=== PATIENT | male | born 1935 | race Caucasian/White ===

== ENCOUNTER 2017-12-23 19:00 | Inpatient (IN) | payer MEDICARE ==
[~2017-12-23] VITALS: Ht 172.7 cm; Wt 86.0 kg
[~2017-12-23 19:00] MED LIST: AMIO200T57 PO; ATOR80TA PO; DABI150C PO; ESCI10TA54 PO; FENO200C PO; FURO40TA4 PO; HCTZ25T PO; INSU100V36 SQ; LANTUS SQ; LEVO50TA8 PO; LIRA0.6P2 SUBCUT; OXYB5TAB11 PO; PRAM0.5T3 PO; TAMS0.4C32 PO
[2017-12-23] MEDS ORDERED: acetaminophen 325mg tablet PO STA (19:02)
[2017-12-23] MEDS ORDERED: normal saline 1000ML IV soln IV ONE (19:05)
[2017-12-23 19:26] LABS: BASOPHILS % (AUTO) 0.3 % (0-1); EOSINOPHILS % (AUTO) 0.3 % (0-6); HEMATOCRIT 24.1 % (42.0-52.0); LYMPHOCYTES # (AUTO) 0.7 X10'3 (1.1-4.8); MEAN CORPUSCULAR HEMOGLOBIN 28.6 PG (27.0-31.0); MEAN CORPUSCULAR HGB CONC 33.1 % (33.0-36.5); MEAN CORPUSCULAR VOLUME 86.4 FL (78-98); MONOCYTES # (AUTO) 1.1 X10'3 (0-0.9); MONOCYTES % (AUTO) 7.2 % (2-12); NEUTROPHILS # (AUTO) 12.8 X10'3 (1.8-7.7); NEUTROPHILS % (AUTO) 87.2 % (42-75); PLATELET COUNT 323 X10'3 (140-440); RED BLOOD COUNT 2.79 X10'6 (4.70-6.10); RED CELL DISTRIBUTION WIDTH 19.7 % (11.5-14.5); WHITE BLOOD COUNT 14.7 X10'3 (4.5-11.0)
[2017-12-23 19:38] LABS: INR 1.8 INR; PARTIAL THROMBOPLASTIN TIME 36 SECONDS (22-32); PROTHROMBIN TIME 18.1 SECONDS (9.0-12.0)
[2017-12-23 19:44] LABS: ALANINE AMINOTRANSFERASE 21 U/L (12-78); ALBUMIN 1.8 G/DL (3.4-5.0); ALBUMIN/GLOBULIN RATIO 0.4 (1.1-1.5); ALKALINE PHOSPHATASE 115 IU/L (46-116); ANION GAP 8 (8-16); ASPARTATE AMINO TRANSFERASE 47 U/L (10-37); BILIRUBIN,TOTAL 0.8 MG/DL (0.1-1.0); BLOOD UREA NITROGEN 28 MG/DL (7-18); BUN/CREATININE RATIO 21.2 (5.4-32.0); CALCIUM 8.1 MG/DL (8.5-10.1); CHLORIDE 103 MMOL/L (99-107); CREATININE 1.32 MG/DL (0.60-1.10); GLUCOSE 152 MG/DL (70-104); MAGNESIUM 1.9 MG/DL (1.5-2.4); POTASSIUM 4.7 MMOL/L (3.5-5.1); SODIUM 140 MMOL/L (135-145); TOTAL CARBON DIOXIDE 28.6 MMOL/L (24-32); TOTAL PROTEIN 6.7 G/DL (6.4-8.2); eGFR 52 ML/MIN
[2017-12-23 19:56] LABS: CLARITY,URINE CLOUDY (Clear); COLOR,URINE YELLOW (Yellow); GLUCOSE, URINE NEGATIVE (Neg); KETONES,URINE NEGATIVE (Neg); LEUKOCYTE ESTERASE ,URINE LARGE (Neg); NITRITES, URINE NEGATIVE (Neg); OCCULT BLOOD,URINE LARGE (Neg); PH,URINE 6.5 (4.8-8.0); PROTEIN,URINE 100 mg/dl (Neg)
[2017-12-23 20:02] LABS: UA COLLECTION TYPE FOLEY CATH
[2017-12-23 20:03] LABS: BACTERIA,URINE 3+ /HPF (Neg); SQUAMOUS EPITHELIAL CELL,UR FEW /LPF (FEW); WBC CLUMPS,URINE FEW /HPF (NEGATIVE); WBC,URINE TNTC /HPF (0-4)
[2017-12-23] MEDS ORDERED: iohexol 300mg/ml 100ml inj. ONE (20:11)
[2017-12-23 20:50] LABS: ANISOCYTOSIS 2+; PLATELET ESTIMATE NORMAL
[2017-12-23 20:51] LABS: ACANTHOCYTES FEW; ELLIPTOCYTES FEW; POLYCHROMASIA FEW
[2017-12-23] MEDS ORDERED: piperacillin/tazo 3.375gm/50ml 50 ML IV ONE (21:05)
[2017-12-23] MEDS ORDERED: OMEP-50 (21:28)
[2017-12-23] MEDS ORDERED: ESCI5TAB PO (21:28)
[2017-12-23] MEDS ORDERED: LIDOcaine 1.5% w/epinephrine 1:200,000 5ml ampul IJ ONE (21:30)
[2017-12-23] MEDS ORDERED: magnesium hydroxide 30ml (MOM) UD suspension PO PRN (22:00)
[2017-12-23] MEDS ORDERED: mag hydrox/Alum hydrox/simeth 30ml oral suspension PO PRN (22:00)
[2017-12-23] MEDS ORDERED: acetaminophen 325mg tablet PO PRN (22:00)
[2017-12-23] MEDS ORDERED: insulin Lispro (HumaLOG) vial - multi-dose SQ SCH (22:10)
[2017-12-23] MEDS ORDERED: glucagon, human recombinant 1mg kit SUBCUT PRN (22:10)
[2017-12-23] MEDS ORDERED: dextrose 50%-water 50ml dispensing syringe IV PRN (22:10)
[2017-12-23] MEDS ORDERED: MESSAGE TO PHARMACY PO ONE (22:10)
[2017-12-23] MEDS ORDERED: dextrose ORAL solution 15 GM/59 ML bottle PO PRN ×2 (22:10)
[2017-12-23 22:20] LABS: ABG HCO3 32.4 mmol/L (22.0-26.0); ABG PCO2 (T) 42.4 mmHg (35.0-48.0); ABG PH (T) 7.501 (7.350-7.450); ABG PO2 (T) 157.3 mmHg (83-108)
[2017-12-23 22:23] LABS: PLEURAL FLUID PH 7.501 (7.63-7.65)
[2017-12-23 22:24] LABS: BFSOURCE PLEURAL FLD
[2017-12-23] MEDS: normal saline 1000ml 1,000 ML IV SCH (22:37)
[2017-12-23] MEDS: CefTRIAXone/D5W-Rocephin 1gm 50 ML IV SCH (22:37)
[2017-12-23 22:41] LABS: ALBUMIN,BODY FLUID 1.2 G/DL; LDH,BODY FLUID 103 U/L; TOTAL PROTEIN,BODY FLUID 3.1 G/DL
[2017-12-23 23:12] LABS: HEMOGLOBIN A1C 6.6 % (4.5-6.2)
[2017-12-23 23:19] LABS: BF MESOTHELIAL CELLS FEW; BF RBC COUNT 693 /CU MM; BF WBC COUNT 32 /CU MM (0-1000); BFAPPEAR HAZY; BFCOLOR YELLOW; BFVOLUME 22 ML; LYMPHOCYTES,BODY FLUID 45 %; MONOCYTES,BODY FLUID 39 %; NEUTROPHILS,BODY FLUID 16 %
[2017-12-23 23:35] VITALS: BP 101/50
[2017-12-24 05:00] VITALS: BP 130/55
[2017-12-24 07:04] LABS: BASOPHILS % (AUTO) 0.3 % (0-1); EOSINOPHILS # (AUTO) 0.2 X10'3 (0-0.9); EOSINOPHILS % (AUTO) 1.3 % (0-6); HEMATOCRIT 26.4 % (42.0-52.0); HEMOGLOBIN 8.5 g/dl (14.0-17.9); LYMPHOCYTES # (AUTO) 1.2 X10'3 (1.1-4.8); LYMPHOCYTES % (AUTO) 9.2 % (21-51); MEAN CORPUSCULAR HEMOGLOBIN 28.3 PG (27.0-31.0); MEAN CORPUSCULAR HGB CONC 32.2 % (33.0-36.5); MEAN CORPUSCULAR VOLUME 87.8 FL (78-98); MEAN PLATELET VOLUME 8.4 FL (7.4-10.4); MONOCYTES # (AUTO) 0.9 X10'3 (0-0.9); MONOCYTES % (AUTO) 6.9 % (2-12); NEUTROPHILS # (AUTO) 10.7 X10'3 (1.8-7.7); NEUTROPHILS % (AUTO) 82.3 % (42-75); PLATELET COUNT 291 X10'3 (140-440)
[2017-12-24 07:14] LABS: ALANINE AMINOTRANSFERASE 26 U/L (12-78); ALBUMIN 1.8 G/DL (3.4-5.0); ALBUMIN/GLOBULIN RATIO 0.4 (1.1-1.5); ALKALINE PHOSPHATASE 117 IU/L (46-116); ANION GAP 5 (8-16); ASPARTATE AMINO TRANSFERASE 48 U/L (10-37); BILIRUBIN,TOTAL 0.7 MG/DL (0.1-1.0); BLOOD UREA NITROGEN 30 MG/DL (7-18); BUN/CREATININE RATIO 19.6 (5.4-32.0); CALCIUM 8.1 MG/DL (8.5-10.1); CHLORIDE 103 MMOL/L (99-107); CREATININE 1.53 MG/DL (0.60-1.10); GLUCOSE 142 MG/DL (70-104); POTASSIUM 4.4 MMOL/L (3.5-5.1); SODIUM 138 MMOL/L (135-145); TOTAL CARBON DIOXIDE 29.9 MMOL/L (24-32); TOTAL PROTEIN 6.7 G/DL (6.4-8.2); eGFR 44 ML/MIN
[2017-12-24 08:01] LABS: ANISOCYTOSIS 2+; PLATELET ESTIMATE NORMAL; TOTAL CELLS COUNTED 100
[2017-12-24 09:42] VITALS: BP 138/61
[2017-12-24] MEDS: amiodarone 200mg tablet PO SCH (09:44)
[2017-12-24] MEDS: pantoprazole 40mg Tablet.DR PO SCH (09:44)
[2017-12-24] MEDS: levoTHYROXINE 25mcg tablet PO SCH (09:44)
[2017-12-24] MEDS: fenofibrate 145mg tablet PO SCH (09:44)
[2017-12-24] MEDS: citalopram 20mg tablet PO SCH (09:44)
[2017-12-24] MEDS: heparin, porcine 5000 units/ml vial SQ SCH ×2 (09:45→21:03)
[2017-12-24 10:00] VITALS: BP 119/71
[2017-12-24] MEDS: normal saline 1000ml 1,000 ML IV SCH ×2 (12:17→23:37)
[2017-12-24] MEDS: levoFLOXACIN 750MG TABLET PO SCH (15:32)
[2017-12-24] MEDS ORDERED: NYST30CR2 TP (16:01)
[2017-12-24] MEDS ORDERED: HYDR-565 PO (16:02)
[2017-12-24] MEDS ORDERED: MULT-1085 PO (16:03)
[2017-12-24] MEDS ORDERED: POTA10TA19 PO (16:04)
[2017-12-24 18:30] VITALS: BP 93/57
[2017-12-24] MEDS: insulin glargine (Lantus) pen - multi-dose SQ SCH (21:00)
[2017-12-24] MEDS: atorvastatin 20mg tablet PO SCH (21:03)
[2017-12-24] MEDS: pramipexole 1mg tablet PO SCH (21:03)
[2017-12-24 22:00] VITALS: BP 99/42
[2017-12-24] MEDS: CefTRIAXone/D5W-Rocephin 1gm 50 ML IV SCH (22:04)
[2017-12-25 05:58] LABS: BASOPHILS % (AUTO) 0.4 % (0-1); EOSINOPHILS % (AUTO) 0.3 % (0-6); HEMATOCRIT 23.2 % (42.0-52.0); HEMOGLOBIN 7.8 g/dl (14.0-17.9); LYMPHOCYTES # (AUTO) 1.1 X10'3 (1.1-4.8); LYMPHOCYTES % (AUTO) 9.8 % (21-51); MEAN CORPUSCULAR HEMOGLOBIN 29.1 PG (27.0-31.0); MEAN CORPUSCULAR HGB CONC 33.5 % (33.0-36.5); MEAN CORPUSCULAR VOLUME 86.6 FL (78-98); MEAN PLATELET VOLUME 8.3 FL (7.4-10.4); MONOCYTES # (AUTO) 0.8 X10'3 (0-0.9); MONOCYTES % (AUTO) 7.1 % (2-12); NEUTROPHILS # (AUTO) 9.6 X10'3 (1.8-7.7); NEUTROPHILS % (AUTO) 82.4 % (42-75); PLATELET COUNT 273 X10'3 (140-440); RED BLOOD COUNT 2.68 X10'6 (4.70-6.10); RED CELL DISTRIBUTION WIDTH 19.9 % (11.5-14.5); WHITE BLOOD COUNT 11.6 X10'3 (4.5-11.0)
[2017-12-25 06:00] VITALS: BP 129/69
[2017-12-25 06:20] LABS: ALANINE AMINOTRANSFERASE 22 U/L (12-78); ALBUMIN 1.6 G/DL (3.4-5.0); ALBUMIN/GLOBULIN RATIO 0.3 (1.1-1.5); ALKALINE PHOSPHATASE 98 IU/L (46-116); ANION GAP 6 (8-16); ASPARTATE AMINO TRANSFERASE 36 U/L (10-37); BILIRUBIN,TOTAL 0.6 MG/DL (0.1-1.0); BLOOD UREA NITROGEN 33 MG/DL (7-18); BUN/CREATININE RATIO 21.6 (5.4-32.0); CALCIUM 7.6 MG/DL (8.5-10.1); CHLORIDE 103 MMOL/L (99-107); CREATININE 1.53 MG/DL (0.60-1.10); GLUCOSE 124 MG/DL (70-104); POTASSIUM 4.1 MMOL/L (3.5-5.1); SODIUM 136 MMOL/L (135-145); TOTAL CARBON DIOXIDE 27.1 MMOL/L (24-32); TOTAL PROTEIN 6.3 G/DL (6.4-8.2); eGFR 44 ML/MIN
[2017-12-25 07:37] LABS: ANISOCYTOSIS 2+; PLATELET ESTIMATE NORMAL
[2017-12-25] MEDS: pantoprazole 40mg Tablet.DR PO SCH (07:45)
[2017-12-25] MEDS: levoTHYROXINE 25mcg tablet PO SCH (07:45)
[2017-12-25] MEDS: citalopram 20mg tablet PO SCH (07:45)
[2017-12-25] MEDS: amiodarone 200mg tablet PO SCH (07:46)
[2017-12-25] MEDS: fenofibrate 145mg tablet PO SCH (07:46)
[2017-12-25] MEDS: heparin, porcine 5000 units/ml vial SQ SCH ×2 (07:50→20:58)
[2017-12-25 10:00] VITALS: BP 143/77
[2017-12-25] MEDS: normal saline 1000ml 1,000 ML IV SCH (12:50)
[2017-12-25] MEDS: ondansetron/PF 4mg/2ml inj IV PRN ×2 (16:11→23:40)
[2017-12-25 18:00] VITALS: BP_SYST 141; BP_SYST 99; BP_DIAS 42; BP_DIAS 69
[2017-12-25] MEDS ORDERED: proCHLORperazine 10 MG/2 ml inj IV PRN (20:25)
[2017-12-25] MEDS: pramipexole 1mg tablet PO SCH (20:58)
[2017-12-25] MEDS: atorvastatin 20mg tablet PO SCH (20:58)
[2017-12-25] MEDS: lactobacillus rhamnosus 10,000 MMU CELLS/CAPSULE PO SCH (20:58)
[2017-12-25] MEDS: insulin glargine (Lantus) pen - multi-dose SQ SCH (21:00)
[2017-12-25 22:00] VITALS: BP 148/85
[2017-12-25] MEDS: CefTRIAXone/D5W-Rocephin 1gm 50 ML IV SCH (22:43)
[2017-12-26] MEDS: normal saline 1000ml 1,000 ML IV SCH ×3 (03:24→15:32)
[2017-12-26 05:24] LABS: BASOPHILS % (AUTO) 0.1 % (0-1); EOSINOPHILS # (AUTO) 0.1 X10'3 (0-0.9); EOSINOPHILS % (AUTO) 0.8 % (0-6); HEMATOCRIT 25.5 % (42.0-52.0); HEMOGLOBIN 8.3 g/dl (14.0-17.9); LYMPHOCYTES # (AUTO) 0.9 X10'3 (1.1-4.8); LYMPHOCYTES % (AUTO) 8.1 % (21-51); MEAN CORPUSCULAR HEMOGLOBIN 28.5 PG (27.0-31.0); MEAN CORPUSCULAR HGB CONC 32.6 % (33.0-36.5); MEAN CORPUSCULAR VOLUME 87.5 FL (78-98); MONOCYTES # (AUTO) 0.6 X10'3 (0-0.9); MONOCYTES % (AUTO) 5.5 % (2-12); NEUTROPHILS % (AUTO) 85.5 % (42-75); PLATELET COUNT 320 X10'3 (140-440); RED BLOOD COUNT 2.92 X10'6 (4.70-6.10); RED CELL DISTRIBUTION WIDTH 19.7 % (11.5-14.5); WHITE BLOOD COUNT 10.6 X10'3 (4.5-11.0)
[2017-12-26 05:51] LABS: ALANINE AMINOTRANSFERASE 21 U/L (12-78); ALBUMIN 1.8 G/DL (3.4-5.0); ALBUMIN/GLOBULIN RATIO 0.4 (1.1-1.5); ALKALINE PHOSPHATASE 107 IU/L (46-116); ANION GAP 11 (8-16); ASPARTATE AMINO TRANSFERASE 44 U/L (10-37); BILIRUBIN,TOTAL 0.8 MG/DL (0.1-1.0); BLOOD UREA NITROGEN 37 MG/DL (7-18); BUN/CREATININE RATIO 22.2 (5.4-32.0); CALCIUM 8.3 MG/DL (8.5-10.1); CHLORIDE 102 MMOL/L (99-107); CREATININE 1.67 MG/DL (0.60-1.10); GLUCOSE 146 MG/DL (70-104); POTASSIUM 4.1 MMOL/L (3.5-5.1); SODIUM 138 MMOL/L (135-145); TOTAL CARBON DIOXIDE 25.3 MMOL/L (24-32); TOTAL PROTEIN 6.8 G/DL (6.4-8.2); eGFR 39 ML/MIN
[2017-12-26 06:00] VITALS: BP 138/69
[2017-12-26 06:45] LABS: ANISOCYTOSIS 2+; PLATELET ESTIMATE NORMAL
[2017-12-26 06:46] LABS: SCHISTOCYTES FEW
[2017-12-26 06:47] LABS: ACANTHOCYTES 1+
[2017-12-26] MEDS: levoTHYROXINE 25mcg tablet PO SCH (07:48)
[2017-12-26] MEDS: pantoprazole 40mg Tablet.DR PO SCH (07:48)
[2017-12-26] MEDS: amiodarone 200mg tablet PO SCH (07:48)
[2017-12-26] MEDS: fenofibrate 145mg tablet PO SCH (07:48)
[2017-12-26] MEDS: lactobacillus rhamnosus 10,000 MMU CELLS/CAPSULE PO SCH ×2 (07:48→19:53)
[2017-12-26] MEDS: levoFLOXACIN 750MG TABLET PO SCH (07:48)
[2017-12-26] MEDS: citalopram 20mg tablet PO SCH (07:48)
[2017-12-26] MEDS: heparin, porcine 5000 units/ml vial SQ SCH ×2 (07:49→19:54)
[2017-12-26 10:00] VITALS: BP 139/71
[2017-12-26 18:00] VITALS: BP 137/77
[2017-12-26] MEDS: atorvastatin 20mg tablet PO SCH (19:53)
[2017-12-26] MEDS: pramipexole 1mg tablet PO SCH (19:53)
[2017-12-26] MEDS: insulin glargine (Lantus) pen - multi-dose SQ SCH (21:00)
[2017-12-26] MEDS: ondansetron/PF 4mg/2ml inj IV PRN (21:22)
[2017-12-26 22:00] VITALS: BP 140/75
[2017-12-26] MEDS: CefTRIAXone/D5W-Rocephin 1gm 50 ML IV SCH (23:41)
[2017-12-27] MEDS: normal saline 1000ml 1,000 ML IV SCH ×2 (01:17→17:31)
[2017-12-27 05:33] LABS: BASOPHILS % (AUTO) 0 % (0-1); EOSINOPHILS % (AUTO) 0.1 % (0-6); HEMATOCRIT 26.2 % (42.0-52.0); HEMOGLOBIN 8.7 g/dl (14.0-17.9); LYMPHOCYTES # (AUTO) 0.8 X10'3 (1.1-4.8); LYMPHOCYTES % (AUTO) 8.5 % (21-51); MEAN CORPUSCULAR HEMOGLOBIN 28.8 PG (27.0-31.0); MEAN CORPUSCULAR HGB CONC 33.3 % (33.0-36.5); MEAN CORPUSCULAR VOLUME 86.5 FL (78-98); MEAN PLATELET VOLUME 8.1 FL (7.4-10.4); MONOCYTES # (AUTO) 0.5 X10'3 (0-0.9); MONOCYTES % (AUTO) 5.6 % (2-12); NEUTROPHILS # (AUTO) 7.7 X10'3 (1.8-7.7); NEUTROPHILS % (AUTO) 85.8 % (42-75); PLATELET COUNT 356 X10'3 (140-440); RED BLOOD COUNT 3.03 X10'6 (4.70-6.10)
[2017-12-27 06:00] VITALS: BP 152/79
[2017-12-27 06:02] LABS: ALANINE AMINOTRANSFERASE 20 U/L (12-78); ALBUMIN 1.8 G/DL (3.4-5.0); ALBUMIN/GLOBULIN RATIO 0.3 (1.1-1.5); ALKALINE PHOSPHATASE 106 IU/L (46-116); ANION GAP 9 (8-16); ASPARTATE AMINO TRANSFERASE 43 U/L (10-37); BILIRUBIN,TOTAL 0.6 MG/DL (0.1-1.0); BLOOD UREA NITROGEN 36 MG/DL (7-18); CALCIUM 8.3 MG/DL (8.5-10.1); CHLORIDE 105 MMOL/L (99-107); CREATININE 1.44 MG/DL (0.60-1.10); GLUCOSE 137 MG/DL (70-104); POTASSIUM 4.1 MMOL/L (3.5-5.1); SODIUM 139 MMOL/L (135-145); TOTAL CARBON DIOXIDE 24.8 MMOL/L (24-32); eGFR 47 ML/MIN
[2017-12-27 06:59] LABS: PLATELET ESTIMATE NORMAL
[2017-12-27 07:00] LABS: ACANTHOCYTES 1+; ANISOCYTOSIS 2+; BURR CELLS 2+; SCHISTOCYTES FEW
[2017-12-27] MEDS: amiodarone 200mg tablet PO SCH (08:10)
[2017-12-27] MEDS: citalopram 20mg tablet PO SCH (08:10)
[2017-12-27] MEDS: pantoprazole 40mg Tablet.DR PO SCH (08:10)
[2017-12-27] MEDS: lactobacillus rhamnosus 10,000 MMU CELLS/CAPSULE PO SCH ×2 (08:10→20:44)
[2017-12-27] MEDS: levoTHYROXINE 25mcg tablet PO SCH (08:10)
[2017-12-27] MEDS: fenofibrate 145mg tablet PO SCH (08:11)
[2017-12-27] MEDS: heparin, porcine 5000 units/ml vial SQ SCH ×2 (08:11→20:45)
[2017-12-27] MEDS: ondansetron/PF 4mg/2ml inj IV PRN (09:01)
[2017-12-27 10:00] VITALS: BP 128/72
[2017-12-27 18:00] VITALS: BP 123/67
[2017-12-27] MEDS: NUT.TX.GLUC.INTOLER,LAC-FR,REG (BOOST GLUCOSE CONTROL) 237 ML PO SCH (19:00)
[2017-12-27] MEDS: pramipexole 1mg tablet PO SCH (20:44)
[2017-12-27] MEDS: atorvastatin 20mg tablet PO SCH (20:44)
[2017-12-27 22:00] VITALS: BP 127/73
[2017-12-27] MEDS: insulin glargine (Lantus) pen - multi-dose SQ SCH (22:20)
[2017-12-28 02:10] VITALS: BP 122/75
[2017-12-28 02:39] LABS: BASOPHILS % (AUTO) 0 % (0-1); EOSINOPHILS # (AUTO) 0.1 X10'3 (0-0.9); EOSINOPHILS % (AUTO) 1.3 % (0-6); HEMATOCRIT 26.8 % (42.0-52.0); HEMOGLOBIN 8.8 g/dl (14.0-17.9); LYMPHOCYTES # (AUTO) 0.7 X10'3 (1.1-4.8); LYMPHOCYTES % (AUTO) 6.5 % (21-51); MEAN CORPUSCULAR HEMOGLOBIN 29.1 PG (27.0-31.0); MEAN PLATELET VOLUME 7.9 FL (7.4-10.4); MONOCYTES # (AUTO) 0.7 X10'3 (0-0.9); MONOCYTES % (AUTO) 6.5 % (2-12); NEUTROPHILS # (AUTO) 9.5 X10'3 (1.8-7.7); NEUTROPHILS % (AUTO) 85.7 % (42-75); PLATELET COUNT 409 X10'3 (140-440); RED BLOOD COUNT 3.04 X10'6 (4.70-6.10); RED CELL DISTRIBUTION WIDTH 20.4 % (11.5-14.5); WHITE BLOOD COUNT 11.1 X10'3 (4.5-11.0)
[2017-12-28 02:53] LABS: ALANINE AMINOTRANSFERASE 34 U/L (12-78); ALBUMIN 1.9 G/DL (3.4-5.0); ALBUMIN/GLOBULIN RATIO 0.4 (1.1-1.5); ALKALINE PHOSPHATASE 107 IU/L (46-116); ANION GAP 5 (8-16); ASPARTATE AMINO TRANSFERASE 89 U/L (10-37); BILIRUBIN,TOTAL 0.6 MG/DL (0.1-1.0); BLOOD UREA NITROGEN 43 MG/DL (7-18); CALCIUM 8.6 MG/DL (8.5-10.1); CHLORIDE 105 MMOL/L (99-107); CREATININE 1.87 MG/DL (0.60-1.10); GLUCOSE 145 MG/DL (70-104); POTASSIUM 4.4 MMOL/L (3.5-5.1); SODIUM 138 MMOL/L (135-145); TOTAL CARBON DIOXIDE 27.6 MMOL/L (24-32); TOTAL PROTEIN 7.1 G/DL (6.4-8.2); eGFR 35 ML/MIN
[2017-12-28 02:56] LABS: TROPONIN I 0.14 NG/ML (0.0-0.05)
[2017-12-28 03:02] LABS: INR 1.8 INR; PARTIAL THROMBOPLASTIN TIME 35 SECONDS (22-32)
[2017-12-28 03:04] LABS: ANISOCYTOSIS 2+; PLATELET ESTIMATE NORMAL
[2017-12-28 03:05] LABS: ACANTHOCYTES 1+; HYPOCHROMASIA 1+; SCHISTOCYTES 1+; TARGET CELLS FEW
[2017-12-28] MEDS: normal saline 1000ml 1,000 ML IV SCH (03:31)
[2017-12-28 04:06] LABS: MAGNESIUM 2.5 MG/DL (1.5-2.4); PHOSPHORUS 3.7 MG/DL (2.3-4.5)
[2017-12-28 06:00] VITALS: BP 116/70
[2017-12-28] MEDS: levoTHYROXINE 25mcg tablet PO SCH (07:00)
[2017-12-28 07:30] LABS: % FREE PSA >2.2 % (.); PSA, FREE >50.00 ng/mL
[2017-12-28] MEDS: pantoprazole 40mg Tablet.DR PO SCH (07:30)
[2017-12-28] MEDS: citalopram 20mg tablet PO SCH (08:00)
[2017-12-28] MEDS: lactobacillus rhamnosus 10,000 MMU CELLS/CAPSULE PO SCH ×2 (08:00→21:47)
[2017-12-28] MEDS: levoFLOXACIN 750MG TABLET PO SCH (08:00)
[2017-12-28] MEDS: amiodarone 200mg tablet PO SCH (08:00)
[2017-12-28] MEDS: fenofibrate 145mg tablet PO SCH (08:30)
[2017-12-28] MEDS ORDERED: aspirin 81mg tab.chew PO SCH (08:30)
[2017-12-28] MEDS: heparin, porcine 5000 units/ml vial SQ SCH ×2 (10:06→21:44)
[2017-12-28] MEDS: dextrose 50%-water 50ml dispensing syringe IV PRN ×2 (12:15→17:31)
[2017-12-28] MEDS ORDERED: dextrose 5%-1/2 normal saline 1,000 ML IV SCH (12:40)
[2017-12-28 15:26] VITALS: BP 129/77
[2017-12-28 18:00] VITALS: BP 122/69
[2017-12-28] MEDS: pramipexole 1mg tablet PO SCH (21:47)
[2017-12-28] MEDS: atorvastatin 20mg tablet PO SCH (21:47)
[2017-12-29] MEDS: dextrose 50%-water 50ml dispensing syringe IV PRN ×2 (00:01→01:54)
[2017-12-29] MEDS: DEXTROSE 10 % AND 0.45 % NACL 1,000 ML IV SCH ×2 (02:25→21:21)
[2017-12-29 06:00] VITALS: BP 114/59
[2017-12-29] MEDS: citalopram 20mg tablet PO SCH (07:58)
[2017-12-29] MEDS: levoTHYROXINE 25mcg tablet PO SCH (07:58)
[2017-12-29] MEDS: pantoprazole 40mg Tablet.DR PO SCH (07:58)
[2017-12-29] MEDS: amiodarone 200mg tablet PO SCH (07:58)
[2017-12-29] MEDS: fenofibrate 145mg tablet PO SCH (07:59)
[2017-12-29] MEDS: heparin, porcine 5000 units/ml vial SQ SCH ×2 (07:59→20:23)
[2017-12-29] MEDS: lactobacillus rhamnosus 10,000 MMU CELLS/CAPSULE PO SCH ×2 (07:59→20:23)
[2017-12-29 10:00] VITALS: BP 117/55
[2017-12-29] MEDS: pramipexole 1mg tablet PO SCH (20:23)
[2017-12-29] MEDS: atorvastatin 20mg tablet PO SCH (20:23)
[2017-12-29 22:00] VITALS: BP 122/69
[2017-12-30] MEDS ORDERED: HYDROmorphone 1 mg/ml syringe IV PRN (03:10)
[2017-12-30] MEDS ORDERED: HYDROmorphone inj. 0.5 MG/0.5 ML DISP.SYRIN IV PRN (03:10)
[2017-12-30] MEDS: levoFLOXACIN 750MG TABLET PO SCH (07:23)
[2017-12-30] MEDS: pantoprazole 40mg Tablet.DR PO SCH (07:24)
[2017-12-30] MEDS: amiodarone 200mg tablet PO SCH (07:24)
[2017-12-30] MEDS: levoTHYROXINE 25mcg tablet PO SCH (07:24)
[2017-12-30] MEDS: lactobacillus rhamnosus 10,000 MMU CELLS/CAPSULE PO SCH ×2 (07:24→20:00)
[2017-12-30] MEDS: fenofibrate 145mg tablet PO SCH (07:24)
[2017-12-30] MEDS: citalopram 20mg tablet PO SCH (07:24)
[2017-12-30] MEDS: heparin, porcine 5000 units/ml vial SQ SCH ×2 (07:25→20:37)
[2017-12-30] MEDS: DEXTROSE 10 % AND 0.45 % NACL 1,000 ML IV SCH (17:29)
[2017-12-30] MEDS: pramipexole 1mg tablet PO SCH (21:00)
[2017-12-30] MEDS: atorvastatin 20mg tablet PO SCH (21:00)
[2017-12-30 22:00] VITALS: BP 122/66
[2017-12-31] MEDS: levoTHYROXINE 25mcg tablet PO SCH (07:00)
[2017-12-31] MEDS: amiodarone 200mg tablet PO SCH (07:01)
[2017-12-31] MEDS: NUT.TX.GLUC.INTOLER,LAC-FR,REG (BOOST GLUCOSE CONTROL) 237 ML PO SCH ×8 (07:01→15:53)
[2017-12-31] MEDS: citalopram 20mg tablet PO SCH (07:01)
[2017-12-31] MEDS: lactobacillus rhamnosus 10,000 MMU CELLS/CAPSULE PO SCH ×2 (07:01→20:00)
[2017-12-31] MEDS: pantoprazole 40mg Tablet.DR PO SCH (07:01)
[2017-12-31] MEDS: fenofibrate 145mg tablet PO SCH (07:02)
[2017-12-31] MEDS: heparin, porcine 5000 units/ml vial SQ SCH ×2 (07:07→20:00)
[2017-12-31] MEDS: DEXTROSE 10 % AND 0.45 % NACL 1,000 ML IV SCH (11:41)
[2017-12-31 18:00] VITALS: BP 119/58
[2017-12-31] MEDS: atorvastatin 20mg tablet PO SCH (20:33)
[2017-12-31] MEDS: pramipexole 1mg tablet PO SCH (20:34)
== END 2018-01-01 07:45 | disposition expired | DRG 871 ==
LOC: ER 19:00 → ED HOLD 21:57 → ORTHO 4S 23:38
PROVIDERS: ADMIT Internal Medicine; ATTEND Family Medicine
PROC: 0W9B3ZZ Drainage of Left Pleural Cavity, Percutaneous Approach (ICD-10-PCS; principal; 2017-12-23)
PROC: BW241ZZ Computerized Tomography (CT Scan) of Chest and Abdomen using Low Osmolar Contrast (ICD-10-PCS; 2017-12-23)
DX: A41.9 Sepsis, unspecified organism (principal); G92 Toxic encephalopathy; I63.9 Cerebral infarction, unspecified; N39.0 Urinary tract infection, site not specified; C79.51 Secondary malignant neoplasm of bone; I13.0 Hypertensive heart and chronic kidney disease with heart failure and stage 1 through stage 4 chronic kidney disease, or unspecified chronic kidney disease; F03.90 Unspecified dementia, unspecified severity, without behavioral disturbance, psychotic disturbance, mood disturbance, and anxiety; C61 Malignant neoplasm of prostate; E78.00 Pure hypercholesterolemia, unspecified; I25.10 Atherosclerotic heart disease of native coronary artery without angina pectoris; I48.91 Unspecified atrial fibrillation; I50.9 Heart failure, unspecified; N18.9 Chronic kidney disease, unspecified; E11.22 Type 2 diabetes mellitus with diabetic chronic kidney disease; R09.2 Respiratory arrest; B96.1 Klebsiella pneumoniae [K. pneumoniae] as the cause of diseases classified elsewhere; Z51.5 Encounter for palliative care; Z66 Do not resuscitate; Z95.1 Presence of aortocoronary bypass graft; Z79.01 Long term (current) use of anticoagulants; Z79.899 Other long term (current) drug therapy; Z79.4 Long term (current) use of insulin; Z86.718 Personal history of other venous thrombosis and embolism
CPT/HCPCS: 32555; 36415; 36600; 70450; 71045; 71260; 74176; 80053; 81001; 82042; 82803; 82948; 83036; 83605; 83615; 83735; 83986; 84100; 84145; 84153; 84154; 84157; 84443; 84484; 85025; 85610; 85730; 87040; 87070; 87077; 87088; 87186; 88108; 88305; 89051; 92616; 93005; 96361; 96365; 97162; 97530; 99285; A4414; A6212; A6213; A6258; J0696; J0780; J1170; J1644; J1815; J2405; J2543; J3490; J7030; Q9967